=== PATIENT | female | born 1960 | race Caucasian/White ===

== ENCOUNTER → 2017-02-19 | Outpatient (CLI) | payer BC | LOC: MW.CHFP 15:02 | PROVIDERS: ATTEND Physician Assistant | DX: J02.9 Acute pharyngitis, unspecified (principal) | CPT/HCPCS: 87081; 87880 ==

== ENCOUNTER 2018-01-16 09:58 | Day surgery (SDC) | payer BC ==
[~2018-01-16 09:58] MED LIST: Acetaminophen/HYDROcodone 325-10 MG Tab PO PRN; Glycopyrrolate 0.2 MG/ML SDV ONE; Ketorolac 10 MG Tab PO PRN; Lactated Ringers 1,000 ML IV SCH; Lidocaine 2% 5 ML SDV ONE; Midazolam 1 MG/ML 2 ML SDV ONE; Neostigmine Methylsulfate 1 MG/ML 5 ML Syringe ONE; Ondansetron 4 MG/2 ML SDV ONE; Propofol 200 MG/20 ML SDV ONE; Rocuronium 10 MG/ML 10 ML Syringe ONE; ceFAZolin 2 GM in Premix Bag 1 BAG IV SCH; fentaNYL 100 MCG/2 ML SDV IVPUSH PRN; fentaNYL 250 MCG/5 ML SDV ONE
[2018-01-16] MEDS ORDERED: Dexamethasone 4 MG/ML 5 ML MDV ONE (10:13)
[2018-01-16] MEDS ORDERED: Midazolam 1 MG/ML 2 ML SDV ONE (10:13)
[2018-01-16] MEDS ORDERED: fentaNYL 100 MCG/2 ML SDV ONE (10:13)
[2018-01-16] MEDS ORDERED: Lidocaine 2% 5 ML SDV ONE (10:13)
[2018-01-16] MEDS ORDERED: Bupivacaine 0.5% 30 ML SDV ONE (10:14)
--- NOTE | 2018-01-16 10:37 | PCM.PREANE ---
Preanesthetic Assessment - Anesthesia/Transfusion/Family Hx Anesthesia History: Prior Anesthesia Without Reaction Family History of Anesthesia Reaction: No Transfusion History: Prior Transfusion Without Reaction - Review of Systems General: No Symptoms Pulmonary: No Symptoms Cardiovascular: No Symptoms Gastrointestinal: No Symptoms Neurological: No Symptoms Other: Reports: None - Physical Assessment NPO Status Date: 01/15/18 Height: 1.8 m Weight: 92.986 kg ASA Class: 2 Airway Class: Mallampati = 1 Dentition: Reports: Normal Dentition ROM/Head Extension: Full Lungs: Clear to Auscultation, Normal Respiratory Effort Cardiovascular: Regular Rate, Regular Rhythm - Allergies Allergies/Adverse Reactions: Allergies Allergy/AdvReac Type Severity Reaction Status Date / Time meperidine [From Demerol] Allergy Severe Tachycardia Verified 01/10/18 12:44 morphine Allergy Severe Tachycardia Verified 01/10/18 12:44 - Anesthesia Plan Pre-Op Medication Ordered: Anxiolytic (ISB for post op anangesia) - Acknowledgements Anesthesia Type Planned: General Anesthesia Pt an Appropriate Candidate for the Planned Anesthesia: Yes Alternatives and Risks of Anesthesia Discussed w Pt/Guardian: Yes Pt/Guardian Understands and Agrees with Anesthesia Plan: Yes PreAnesthesia Questionnaire Gastrointestinal History: Reports: Hepatitis, Other (See Below) Other Gastrointestinal History: occasional heartburn, hx of hepatitis C, went through treatment in 2007 Genitourinary History: Reports: None FINANCE EXECUTIVE History: Reports: Musculoskeletal History: Reports: Arthritis, Fibromyalgia Neurological History: Reports: Migraines Psychiatric History: Reports: Anxiety, Depression Endocrine/Metabolic History: Reports: None Hematologic History: Reports: Blood Transfusion(s), Other (See Below) Other Hematologic History: Hepatitis C, interferon treatments, transfusion after son was born Immunologic History: Reports: None Oncologic (Cancer) History: Reports: None Dermatologic History: Reports: None - Past Surgical History Head Surgeries/Procedures: Reports: None GI Surgical History: Reports: Appendectomy Female Surgical History: Reports: Section, Endometrial Ablation, Tubal Ligation, Other (See Below) Other Female Surgeries/Procedures: Laproscopy, Neurological Surgical History: Reports: Other (See Below) Other Neurological Surgeries/Procedures: coccyx removed - SUBSTANCE USE Smoking Status *Q: Never Smoker Recreational Drug Use History: No - HOME MEDS Home Medications: Home Meds . [No Known Home Meds] 01/10/18 [History] - CURRENT (IN HOUSE) MEDS Current Meds: Current Medications Hydrocodone Bitart/Acetaminophen ([place] 325-10 Mg) 1 - 2 tab PO Q4H PRN PRN Reason: Pain Fentanyl (Sublimaze) 50 mcg IVPUSH Q5M PRN PRN Reason: Pain (severe 7-10) Stop: 01/17/18 08:48 Cefazolin Sodium/Dextrose 2 gm (/ Premix) 50 mls @ 100 mls/hr IV ONCALL [facility] Lactated Ringer's (Ringers, Lactated) 1,000 mls @ 100 mls/hr IV ASDIRECTED [facility] Ketorolac Tromethamine (Toradol) 10 mg PO Q6H PRN PRN Reason: Pain Stop: 01/21/18 08:01 Discontinued Medications Bupivacaine HCl (Marcaine 0.5%) Confirm Administered Dose 30 ml .ROUTE .STK-MED ONE Stop: 01/16/18 10:15 Dexamethasone (Dexamethasone) Confirm Administered Dose 20 mg .ROUTE .STK-MED ONE Stop: 01/16/18 10:14 Fentanyl (Sublimaze) Confirm Administered Dose 250 mcg .ROUTE .STK-MED ONE Stop: 01/16/18 07:05 Fentanyl (Sublimaze) Confirm Administered Dose 100 mcg .ROUTE .STK-MED ONE Stop: 01/16/18 10:14 Glycopyrrolate (Robinul) Confirm Administered Dose 0.4 mg .ROUTE .STK-MED ONE Stop: 01/16/18 07:05 Lidocaine (Xylocaine-Mpf 2%) Confirm Administered Dose 5 ml .ROUTE .STK-MED ONE Stop: 01/16/18 07:05 Lidocaine (Xylocaine-Mpf 2%) Confirm Administered Dose 5 ml .ROUTE .STK-MED ONE Stop: 01/16/18 10:14 Midazolam HCl (Versed 1 Mg/Ml) Confirm Administered Dose 2 mg .ROUTE .STK-MED ONE Stop: 01/16/18 07:05 Midazolam HCl (Versed 1 Mg/Ml) Confirm Administered Dose 2 mg .ROUTE .STK-MED ONE Stop: 01/16/18 10:14 Neostigmine Methylsulfate (Neostigmine) Confirm Administered Dose 5 mg .ROUTE .STK-MED ONE Stop: 01/16/18 07:05 Ondansetron HCl (Zofran) Confirm Administered Dose 4 mg .ROUTE .STK-MED ONE Stop: 01/16/18 07:05 Propofol (Diprivan 20 Ml) Confirm Administered Dose 200 mg .ROUTE .STK-MED ONE Stop: 01/16/18 07:05 Rocuronium [place] (Zemuron) Confirm Administered Dose 100 mg .ROUTE .STK-MED ONE Stop: 01/16/18 07:05
--- NOTE | 2018-01-16 10:52 | PCM.SN ---
- Free Text/Narrative Note: procedure note: isb placed in pre op holding for post op pain management. consent obtained, site marked, time out performed, sedated with versed and fentanyl. skin localized with lido. twitch obtained, local injected in 5 ml increments to bupivicaine 0.5% 28 ml plus 8 mg dexamethasone. no comps
[2018-01-16] MEDS ORDERED: ceFAZolin 1 GM Vial ONE (11:30)
[2018-01-16] MEDS ORDERED: Sodium Chloride 0.9% 20 ML ONE (11:30)
[2018-01-16] MEDS ORDERED: ePHEDrine 50 MG/ML SDV ONE (11:31)
[2018-01-16] MEDS ORDERED: Phenylephrine 1% 10 MG/ML SDV ONE (11:33)
[2018-01-16] MEDS ORDERED: Glycopyrrolate 0.2 MG/ML SDV ONE (11:39)
--- NOTE | 2018-01-16 12:28 | PCM.OPNOTE ---
- General Post-Op/Procedure Note Date of Surgery/Procedure: 01/16/18 Operative Procedure(s): L shoulder scope with SAD, extensive debridement Post-Op Diagnosis: L shoulder impingement, biceps tendonopathy, degenerative anterior labral tear Primary Surgeon: Zelda Rockwell Associate Financial Advisor: Eva Liriano in mLs: 5 Condition: Good Free Text/Narrative:: #[id number]
--- NOTE | 2018-01-16 13:04 | OR ---
SURGEON: Zelda Rockwell MD DATE OF PROCEDURE: 01/16/2018 PREOPERATIVE DIAGNOSIS: Left shoulder impingement syndrome. POSTOPERATIVE DIAGNOSES: 1. Left shoulder impingement syndrome. 2. Left shoulder degenerative anterior labral tear. 3. Left shoulder biceps tendinopathy. PROCEDURES: Left shoulder arthroscopy with: 1. Subacromial decompression with release of coracoacromial ligament and acromioplasty. 2. Extensive debridement including debridement of degenerative anterior labral tear, biceps tenotomy, and extensive bursectomy. PSYCHOLOGY LECTURER: Eva Liriano PA-C. ANESTHESIA: General with interscalene block. ESTIMATED BLOOD LOSS: 5 mL. TOURNIQUET TIME: 0 minutes. COMPLICATIONS: None. DVT PROPHYLAXIS: PAS boots to bilateral lower extremities. IMPLANTS USED: None. BRIEF HISTORY: Cally is a 57-year-old female with history of continued left shoulder pain. She had failed conservative treatment. In addition to her left shoulder pain, she does have a diagnosis of fibromyalgia. Due to her lack of response to conservative treatment, I did recommend surgical intervention. The risks and goals of procedure were discussed with the patient and were documented preoperatively. She agreed to proceed. DESCRIPTION OF PROCEDURE: The patient was properly identified and brought to the operating room. She was transferred from the OR cart and placed on the operating table in supine position. General anesthesia was administered. An interscalene block had been administered preoperatively. After adequate anesthesia was obtained, she was placed into a beach-chair type position. Care was taken to pad all bony prominences. Her head was secured. The left upper extremity was then prepped in standard fashion using ChloraPrep solution. It was then sterilely draped. A time-out was performed to ensure correct site and procedure. Preoperative antibiotics were given. The surgical site had been marked preoperatively. A marking pen was used to identify bony landmarks. Approximately 30 mL of normal saline was introduced into the glenohumeral joint. A posterior portal was established. Blunt trocar and cannula were introduced into the glenohumeral joint. Camera, inflow, and outflow were assembled. No significant synovitis was noted in the rotator interval. An anterior portal was established. The subscapularis was visualized and probed and found to be intact. No loose bodies were present within the subscapular recess. The anterior labrum was then visualized. There was some degenerative fraying of the anterior labrum, which was resected with a shaver. A sublabral foramen was noted and this was not repaired. The biceps tendon was then visualized. Its attachment to the superior glenoid showed some peel back. The biceps did have extensive synovitis noted along the proximal insertion. As the tendon was pulled into the joint, extensive synovitis was noted distally along the tendon as well. With the degree of synovitis, I elected to proceed with a biceps tenotomy. This was performed without difficulty and the biceps tendon easily retracted into the biceps tendon sheath. Its attachment was smoothed. The glenoid and humeral head were inspected. No degenerative changes were noted. The posterior labrum appeared intact. I extended into the axillary pouch and mild synovitis was noted. No loose bodies were identified. The arm was then brought into an abducted and externally rotated position. The bare area was noted posteriorly. As I progressed anteriorly, the cuff attachment appeared intact, and there was no sign of partial or full-thickness tearing. The arm was then brought back into a neutral position. Instruments were removed from the glenohumeral joint. Blunt trocar and cannula were then introduced into the subacromial space. Camera, inflow, and outflow were assembled. A lateral portal was established. A shaver was inserted. She had a large degree of hemorrhagic bursa. This was resected with the shaver and electrocautery. The undersurface of the acromion was cleared. The coracoacromial ligament was released anteriorly. She appeared to have a large spur off the anterior acromion. A 5.0 mm stanford was used to resect this and perform an acromioplasty. This provided good decompression of the subacromial space. The remainder of the rotator cuff was inspected. There did not appear to be any evidence of tearing or softening of the cuff tissue. Instruments were then removed from the shoulder. The portal sites were closed with 3-0 nylon. Xeroform gauze was placed over the wound and a bulky dressing was applied. She was placed into a sling. She was awakened from her anesthetic and transferred back to the operating room cart. She was brought to recovery room in stable condition. All needle and sponge counts were correct. CONY / PAUL /[id number]
--- NOTE | 2018-01-16 13:48 | PCM48HPAN ---
Post Anesthesia Note - EVALUATION WITHIN 48HRS OF ANESTHETIC Vital Signs in Normal Range: Yes Patient Participated in Evaluation: Yes Respiratory Function Stable: Yes Airway Patent: Yes Cardiovascular Function Stable: Yes Hydration Status Stable: Yes Pain Control Satisfactory: Yes Nausea and Vomiting Control Satisfactory: Yes Mental Status Recovered: Yes Resp Rate: 13
--- NOTE | 2018-01-16 13:48 | PCM.POSTAN ---
POST ANESTHESIA ASSESSMENT - MENTAL STATUS Mental Status: Alert, Oriented - RESPIRATORY Respiratory Status: Respiratory Rate WNL, Airway Patent, O2 Saturation Stable - CARDIOVASCULAR CV Status: Pulse Rate WNL, Blood Pressure Stable - GASTROINTESTINAL GI Status: No Symptoms - POST OP HYDRATION Hydration Status: Adequate & Stable
[2018-01-16] MEDS ORDERED: Scopolamine 1.5 MG Transdermal Patch TRDERM PRN (14:53)
[2018-01-16] MEDS ORDERED: Meclizine 25 MG Tab PO ONE (14:54)
== END 2018-01-16 15:50 | disposition home or self-care (01) ==
LOC: MW.SDS 09:58
PROVIDERS: ATTEND Orthopaedic Surgery
DX: M75.42 Impingement syndrome of left shoulder (principal); M75.22 Bicipital tendinitis, left shoulder; S43.432A Superior glenoid labrum lesion of left shoulder, initial encounter; Z88.8 Allergy status to other drugs, medicaments and biological substances; Z90.49 Acquired absence of other specified parts of digestive tract; X58.XXXA Exposure to other specified factors, initial encounter
CPT/HCPCS: 29823; 29826; A9270; J0690; J1100; J2250; J2370; J2405; J3010; J7120; 01630; 88304; J2704

== ENCOUNTER 2021-07-02 18:11 | Emergency (ER) | payer BC ==
[2021-07-02] MEDS ORDERED: Sodium Chloride 0.9% 1,000 ML IV ONE (19:06)
[2021-07-02] MEDS ORDERED: Ketorolac 30 MG/ML SDV IVPUSH ONE (19:30)
[2021-07-02] MEDS ORDERED: Ondansetron 4 MG/2 ML SDV IVPUSH ONE (19:30)
[2021-07-02 20:04] LABS: BLOOD UREA NITROGEN,BUN 11 mg/dL (7.0-18.0); CARBON DIOXIDE,CO2 27.5 mmol/L (21.0-32.0); CHLORIDE,CL 96 mmol/L (98-107); GLUCOSE RANDOM 112 mg/dL (74-106); POTASSIUM,K 3.7 mmol/L (3.5-5.1); SODIUM,NA 133 mmol/L (136-145)
[2021-07-02] MEDS ORDERED: Acetaminophen 500 MG Tab PO ONE (20:22)
--- NOTE | 2021-07-02 21:22 | EDM.PDOC ---
ED HPI GENERAL MEDICAL PROBLEM - General Chief Complaint: General Stated Complaint: COVID POSITIVE Time Seen by Provider: 07/02/21 18:55 Source of Information: Reports: Patient History Limitations: Reports: No Limitations - History of Present Illness INITIAL COMMENTS - FREE TEXT/NARRATIVE: HISTORY AND PHYSICAL: History of present illness: Patient is a 61-year-old female with known COVID-19 diagnosis since yesterday who presents emergency room today feeling as if she cannot control her fevers with medications at home. Patient states that she took 1 dose of Advil at 4 AM and took a dose of Mucinex at 10 this morning and states that she continues to have a fever. Patient denies taking any Tylenol and has not taken Advil since. Patient states that she was diagnosed with COVID-19 yesterday in the walk-in clinic and is set up to receive Regeneron starting Sunday at the cancer center. Patient states other than feeling her fever, she has otherwise been well and denies any worsening chest pain or shortness of breath. Patient states she has had a cough, body aches, and mild headache. Notes episode vomiting earlier today. Patient denies chest pain, shortness of breath. Denies neck stiff ness, change in vision, syncope, or near syncope. Denies abdominal pain, diarrhea, constipation, or dysuria. Has not noted any blood in urine or stool. Patient has been eating and drinking appropriately. Review of systems: As per history of present illness and below otherwise all systems reviewed and negative. Past medical history: As per history of present illness and as reviewed below otherwise noncontributory. Surgical history: As per history of present illness and as reviewed below otherwise noncontributory. Social history: See social history for further information Family history: As per history of present illness and as reviewed below otherwise noncontributory. Physical exam: General: Patient is alert, oriented, and in no acute distress. Patient sitting comfortably on exam table. Patient is febrile 101.8 otherwise vitally stable. HEENT: Atraumatic, normocephalic, pupils equal and reactive bilaterally, negative for conjunctival pallor or scleral icterus, mucous membranes moist, TMs normal bilaterally, throat clear, neck supple, nontender, trachea midline. No drooling or trismus noted. No meningeal signs. No hot potato voice noted. Lungs: Clear to auscultation, breath sounds equal bilaterally, chest nontender. Heart: S1S2, regular rate and rhythm without overt murmur Abdomen: Soft, nondistended, nontender. Negative for masses or hepatosplen omegaly. Negative for costovertebral tenderness. Pelvis: Stable nontender. Genitourinary: Deferred. Rectal: Deferred. Skin: Intact, warm, dry. No lesions or rashes noted. Extremities: Atraumatic, negative for cords or calf pain. Neurovascular unremarkable. Neuro: Awake, alert, oriented. Cranial nerves II through XII unremarkable. Cerebellum unremarkable. Motor and sensory unremarkable throughout. Exam nonfocal. Notes: Patient is a 61-year-old female who presents emergency room today secondary to known COVID-19 diagnosis yesterday with concern of not being able to control her fevers today. On arrival to the ED, patient is febrile 101.8, otherwise vitally stable on exam and well-appearing. Will obtain basic lab work and provide 1 L normal saline bolus, Zofran, and Tylenol and reassess patient. CBC unremarkable. CMP shows mild hyponatremia of 133 and hypochloremia of 96. Glucose mildly elevated at 112. AST and ALT are elevated at 120 and 117 respectively with a normal bilirubin and alk phos. Upon reevaluation of patient, she remains vitally stable and her fever has now decreased to 99.8 orally (HR 90, BP 140/90s, O2 on RA 95%, RR 16. Strict return precautions thoroughly discussed with patient. Discussed importance for follow- up with a primary care provider following COVID-19 instruction and for reevaluation of her liver function testing with her pcp. Patient states that she is scheduled to receive Regeneron on Sunday. Voices understanding and is agreeable to plan of care. Denies any further questions or concerns at this time. Diagnostics: CBC, CMP Therapeutics: Normal saline, Toradol, Tylenol, Zofran Prescription: None Impression: COVID-19 viral infection Transaminitis Plan: 1. Your vital signs and oxygen saturation are well enough that you were able to monitor your symptoms at home. Continue to monitor for trouble breathing, new confusion or inability to arouse, bluish lips or face or any of the other symptoms we discussed -if this occurs please return to the emergency room.Continue to monitor your health at home for worsening symptoms so that you can be taken care of and treated quickly if needed. 2. Please self quarantine until 10 days have passed since your symptoms began AND you are fever free (<100.4 degrees fahrenheit) for 24 hours without the use of fever-reducing medications AND symptoms are improving. You should restrict activities outside of your home, except for getting medical care. Do not go to work, school, or public areas. Avoid using public transportation, ride-sharing, or taxis. 3. You may alternate Tylenol and ibuprofen as needed for pain and fever management. 4. The [facility] department will be calling you and following up with you. The [place] COVID 19 Hotline phone number , They are open Sunday - Sunday 7am - 7pm. Follow up with your primary care provider for re-evaluation and re-testing after quarantine and discuss when you should be seen. 5. For more specific guidelines regarding isolation/quarantine please visit this website. https://www.health.[place].gov/sites/www/files/documents/Files/EVELIO/coronavirus/Factsh eet_for_People_With_COVID-19.pdf Definitive disposition and diagnosis as appropriate pending reevaluation and review of above. generalized Pain Score (Numeric/FACES): 10 - Related Data Allergies Allergy/AdvReac Type Severity Reaction Status Date / Time meperidine [From Demerol] Allergy Severe Tachycardia Verified 07/02/21 18:57 morphine Allergy Severe Tachycardia Verified 07/02/21 18:57 Home Meds: Home Meds Metoprolol Succinate 100 mg PO DAILY 07/02/21 [History] amLODIPine [Norvasc] 5 mg PO DAILY 07/02/21 [History] lisinopriL [Lisinopril] 40 mg PO DAILY 07/02/21 [History] Past Medical History Cardiovascular History: Reports: Hypertension Gastrointestinal History: Reports: Hepatitis, Other (See Below) Other Gastrointestinal History: occasional heartburn, hx of hepatitis C, went through treatment in 2007 Genitourinary History: Reports: None [employer] History: Reports: Musculoskeletal History: Reports: Arthritis, Fibromyalgia Neurological History: Reports: Migraines Psychiatric History: Reports: Anxiety, Depression Endocrine/Metabolic History: Reports: None Hematologic History: Reports: Blood Transfusion(s), Other (See Below) Other Hematologic History: Hepatitis C, interferon treatments, transfusion after son was born Immunologic History: Reports: None Oncologic (Cancer) History: Reports: None Dermatologic History: Reports: None - Infectious Disease History Infectious Disease History: Reports: Hepatitis C, Novel Coronavirus - Past Surgical History Head Surgeries/Procedures: Reports: None GI Surgical History: Reports: Appendectomy Female Surgical History: Reports: Section, Endometrial Ablation, Tubal Ligation, Other (See Below) Other Female Surgeries/Procedures: Laproscopy, Neurological Surgical History: Reports: Other (See Below) Other Neurological Surgeries/Procedures: coccyx removed Social & Family History - Family History Family Medical History: No Pertinent Family History - Tobacco Use Tobacco Use Status *Q: Never Tobacco User - Caffeine Use Caffeine Use: Reports: None - Recreational Drug Use Recreational Drug Use: No ED ROS GENERAL - Review of Systems Review Of Systems: Comprehensive ROS is negative, except as noted in HPI. ED EXAM, GENERAL - Physical Exam Exam: See Below (see dictation) Course - Vital Signs Last Recorded V/S: Last Vital Signs Temp 101.8 F H 07/02/21 19:36 Pulse 107 H 07/02/21 19:36 Resp 22 H 07/02/21 19:36 BP 149/90 H 07/02/21 19:36 Pulse Ox 94 L 07/02/21 19:36 - Orders/Labs/Meds Labs: Laboratory Tests 07/02/21 07/02/21 Range/Units 19:25 19:25 WBC 5.55 (4.0-11.0) K/uL RBC 4.75 (4.30-5.90) M/uL Hgb 14.5 (12.0-16.0) g/dL Hct 42.2 (36.0-46.0) % MCV 88.8 (80.0-98.0) fL MCH 30.5 (27.0-32.0) pg MCHC 34.4 (31.0-37.0) g/dL RDW Std Deviation 44.3 (28.0-62.0) fl RDW Coeff of Camacho 14 (11.0-15.0) % Plt Count 184 (150-400) K/uL MPV 10.10 (7.40-12.00) fL Neut % (Auto) 69.7 (48.0-80.0) % Lymph % (Auto) 19.6 (16.0-40.0) % [place] % (Auto) 10.5 (0.0-15.0) % Eos % (Auto) 0.0 (0.0-7.0) % Baso % (Auto) 0.2 (0.0-1.5) % Neut # (Auto) 3.9 (1.4-5.7) K/uL Lymph # (Auto) 1.1 (0.6-2.4) K/uL [place] # (Auto) 0.6 (0.0-0.8) K/uL Eos # (Auto) 0.0 (0.0-0.7) K/uL Baso # (Auto) 0.0 (0.0-0.1) K/uL Nucleated RBC % 0.0 /100WBC Nucleated RBCs # 0 K/uL Sodium 133 L (136-145) mmol/L Potassium 3.7 (3.5-5.1) mmol/L Chloride 96 L (98-107) mmol/L Carbon Dioxide 27.5 (21.0-32.0) mmol/L BUN 11 (7.0-18.0) mg/dL Creatinine 0.9 (0.6-1.0) mg/dL Est Cr Clr Drug Dosing 72.44 mL/min Estimated GFR (MDRD) > 60.0 ml/min Glucose 112 H (74-106) mg/dL Calcium 9.0 (8.5-10.1) mg/dL Total Bilirubin 0.8 (0.2-1.0) mg/dL AST 120 H (15-37) IU/L ALT 117 H (14-63) IU/L Alkaline Phosphatase 95 (46-116) U/L Total Protein 8.1 (6.4-8.2) g/dL Albumin 4.2 (3.4-5.0) g/dL Globulin 3.9 (2.6-4.0) g/dL Albumin/Globulin Ratio 1.1 (0.9-1.6) Meds: Medications Discontinued Medications Generic Name Dose Route Start Last Admin Trade Name Freq PRN Reason Stop Dose Admin Acetaminophen 1,000 mg 07/02/21 20:22 07/02/21 21:20 Acetaminophen 500 Mg Tab PO 07/02/21 20:23 1,000 mg ONETIME ONE Administration Sodium Chloride 1,000 mls @ 999 mls/hr 07/02/21 19:06 07/02/21 19:38 Normal Saline IV 07/02/21 20:06 999 mls/hr BOLUS ONE Administration Ketorolac Tromethamine 30 mg 07/02/21 19:30 07/02/21 20:01 Ketorolac 30 Mg/Ml Sdv IVPUSH 07/02/21 19:31 30 mg ONETIME ONE Administration Ondansetron HCl 4 mg 07/02/21 19:30 07/02/21 20:01 Ondansetron 4 Mg/2 Ml Sdv IVPUSH 07/02/21 19:31 4 mg ONETIME ONE Administration Departure - Departure Time of Disposition: : Disposition: Home, Self-Care 01 Clinical Impression: COVID-19 virus infection, Transaminitis - Discharge Information Instructions: COVID-19 Referrals: Marlene Mckay PA [Primary Care Provider] - Forms: ED Department Discharge Additional Instructions: The following information is given to patients seen in the emergency department who are being discharged to home. This information is to outline your options for follow-up care. We provide all patients seen in our emergency department with a follow-up referral. The need for follow-up, as well as the timing and circumstances, are variable depending upon the specifics of your emergency department visit. If you don't have a primary care physician on staff, we will provide you with a referral. We always advise you to contact your personal physician following an emergency department visit to inform them of the circumstance of the visit and for follow-up with them and/or the need for any referrals to a consulting specialist. The emergency department will also refer you to a specialist when appropriate. This referral assures that you have the opportunity for follow-up care with a specialist. All of these measure are taken in an effort to provide you with optimal care, which includes your follow-up. Under all circumstances we always encourage you to contact your private physician who remains a resource for coordinating your care. When calling for follow-up care, please make the office aware that this follow-up is from your recent emergency room visit. If for any reason you are refused follow-up, please contact the [facility] Emergency Department at and asked to speak to the emergency department charge nurse. [facility] [address] [place] [address] [facility] [address] [place] [address] 1. Your vital signs and oxygen saturation are well enough that you were able to monitor your symptoms at home. Continue to monitor for trouble breathing, new confusion or inability to arouse, bluish lips or face or any of the other symptoms we discussed -if this occurs please return to the emergency room.Continue to monitor your health at home for worsening symptoms so that you can be taken care of and treated quickly if needed. 2. Please self quarantine until 10 days have passed since your symptoms began AND you are fever free (<100.4 degrees fahrenheit) for 24 hours without the use of fever-reducing medications AND symptoms are improving. You should restrict activities outside of your home, except for getting medical care. Do not go to work, school, or public areas. Avoid using public transportation, ride-sharing, or taxis. 3. You may alternate Tylenol and ibuprofen as needed for pain and fever management. 4. The [facility] department will be calling you and following up with you. The [place] COVID 19 Hotline phone number , They are open Sunday - Sunday 7am - 7pm. Follow up with your primary care provider for re-evaluation and re-testing after quarantine and discuss when you should be seen. 5. For more specific guidelines regarding isolation/quarantine please visit this website. https://www.health.[place].gov/sites/www/files/documents/Files/EVELIO/coronavirus/Factsh eet_for_People_With_COVID-19.pdf Sepsis Event Note (ED) - Evaluation Sepsis Screening Result: Possible Sepsis Risk
== END 2021-07-02 21:31 | disposition home or self-care (01) ==
LOC: MW.ED 18:11
DX: U07.1 COVID-19 (principal); R74.01 Elevation of levels of liver transaminase levels; I10 Essential (primary) hypertension; Z88.5 Allergy status to narcotic agent; Z79.899 Other long term (current) drug therapy
CPT/HCPCS: 36415; 80053; 85025; 96374; 96375; 99284; A9270; J1885; J2405; J7030; 99283

== ENCOUNTER 2021-07-05 18:57 | Emergency (ER) | payer BC ==
[2021-07-05] MEDS ORDERED: Sodium Chloride 0.9% 10 ML Syringe FLUSH PRN (19:43)
[2021-07-05] MEDS ORDERED: Sodium Chloride 0.9% 2.5 ML Syringe FLUSH PRN (19:43)
[2021-07-05] MEDS ORDERED: Sodium Chloride 0.9% 1,000 ML IV ONE (19:43)
[2021-07-05] MEDS ORDERED: cefTRIAXone 1 GM in Sodium Chloride 0.9% 100 ML IV ONE (19:43)
--- NOTE | 2021-07-05 20:04 | EDM.PDOC ---
ED HPI GENERAL MEDICAL PROBLEM - General Chief Complaint: Respiratory Problem Stated Complaint: VOMITTING, COVID POSITIVE Time Seen by Provider: 07/05/21 19:43 - History of Present Illness INITIAL COMMENTS - FREE TEXT/NARRATIVE: History of present illness: [] This 61-year-old is treated only for hypertension says that she has been symptomatic with cough weakness and fever since 28 June 2021 and has been diagnosed with COVID-19. Today when she vomited quite a bit she found that 1 time she choked and got some of the vomitus in her lungs. She coughed up what looked like vomit. The patient is more short of breath and weaker since. The patient has a sick at home with her. She is concerned about his health as well. The patient is unvaccinated. This patient was seen and evaluated during the 2019 SARS-CoV-2 novel coronavirus pandemic period. Community viral transmission is ongoing at time of this encounter and the emergency department is operating under pandemic response procedures. Review of systems: As per history of present illness and below otherwise all systems reviewed and negative. Past medical history: As per history of present illness and as reviewed below otherwise noncontributory. Surgical history: As per history of present illness and as reviewed below otherwise noncontributory. Social history: No reported history of drug or alcohol abuse. Family history: As per history of present illness and as reviewed below otherwise noncontributory. Physical exam: Constitutional - well developed, well-nourished and in no acute distress HEENT - normocephalic, no evidence of trauma - external nose and mouth normal - no mass in neck and no JVD - mucosae moist EYES - full EOM, PERRL, no icterus - no evidence of inflammation, injection, or drainage Respiratory - no respiratory distress, equal bilateral expansion, lungs markedly diminished to auscultation. Oxygen saturation 93 to 95% on room air which is in the normal range. She claims it was 88% at home on her home oxygen monitor. Cardiovascular - Regular Rhythm with S1 and S2 appreciated and no murmur, gallop or rub. GI - abdomen soft without distension or organomegaly - normal bowel sounds - no guard or rebound Musculoskeletal no gross deformity of long bones or joints - no tenderness, swelling or edema Neurologic - Alert and oriented times four - CN II-XII grossly intact - motor sensory and coordination symmetrically normal Psychiatric - appropriate mood and affect with normal thought content Hematologic - No petechiae or purpura - mucosa appropriate color and sclera not pale - normal nail bed color and refill Integument - no rash or evidence of trauma - normal turgor Diagnostics: [] Therapeutics: [] Impression: [] Plan: [] Definitive disposition and diagnosis as appropriate pending reevaluation and review of above. - Related Data Allergies Allergy/AdvReac Type Severity Reaction Status Date / Time meperidine [From Demerol] Allergy Severe Tachycardia Verified 07/02/21 18:57 morphine Allergy Severe Tachycardia Verified 07/02/21 18:57 Home Meds: Home Meds Metoprolol Succinate 100 mg PO DAILY 07/02/21 [History] amLODIPine [Norvasc] 5 mg PO DAILY 07/02/21 [History] lisinopriL [Lisinopril] 40 mg PO DAILY 07/02/21 [History] Ondansetron [Zofran ODT] 4 mg PO Q6H PRN #10 tab.dis 07/05/21 [Rx] Past Medical History Cardiovascular History: Reports: Hypertension Gastrointestinal History: Reports: Hepatitis, Other (See Below) Other Gastrointestinal History: occasional heartburn, hx of hepatitis C, went through treatment in 2007 Genitourinary History: Reports: None ESTABLISHMENT GUIDE History: Reports: Musculoskeletal History: Reports: Arthritis, Fibromyalgia Neurological History: Reports: Migraines Psychiatric History: Reports: Anxiety, Depression Endocrine/Metabolic History: Reports: None Hematologic History: Reports: Blood Transfusion(s), Other (See Below) Other Hematologic History: Hepatitis C, interferon treatments, transfusion after son was born Immunologic History: Reports: None Oncologic (Cancer) History: Reports: None Dermatologic History: Reports: None - Infectious Disease History Infectious Disease History: Reports: Hepatitis C, Novel Coronavirus - Past Surgical History Head Surgeries/Procedures: Reports: None GI Surgical History: Reports: Appendectomy Female Surgical History: Reports: Section, Endometrial Ablation, Tubal Ligation, Other (See Below) Other Female Surgeries/Procedures: Laproscopy, Neurological Surgical History: Reports: Other (See Below) Other Neurological Surgeries/Procedures: coccyx removed Social & Family History - Family History Family Medical History: No Pertinent Family History - Caffeine Use Caffeine Use: Reports: None ED ROS GENERAL - Review of Systems Review Of Systems: Comprehensive ROS is negative, except as noted in HPI. ED EXAM, GENERAL - Physical Exam Exam: See Below Free Text/Narrative:: My physical exam is in the HPI #1 Interpretation EKG Interpretation Comments: EKG date 07/05/2021 time 8:32 PM rhythm sinus rhythm rate 98 [place] interval 169 QT duration 428 [place] XIX QRS late transition R wave in the precordium comparison EKG 01/06/2019 no change that cannot be explained by lead placement impression no acute injury Course - Vital Signs Last Recorded V/S: Last Vital Signs Temp 38.9 C H 07/05/21 19:35 Pulse 101 H 07/05/21 19:35 Resp 16 07/05/21 19:35 BP 141/90 H 07/05/21 19:35 Pulse Ox 95 07/05/21 19:35 - Orders/Labs/Meds Orders: Active Orders 24 hr Category Date Time Status Blood Pressure Mgt: Sepsis [RC] Q15MX2 Care 07/05/21 19:44 Active CULTURE BLOOD [BC] Stat Lab 07/05/21 20:15 Received CULTURE BLOOD [BC] Stat Lab 07/05/21 20:27 Received Sodium Chloride 0.9% [Saline Flush] Med 07/05/21 19:43 Active 10 ml FLUSH ASDIRECTED PRN Sodium Chloride 0.9% [Saline Flush] Med 07/05/21 19:43 Active 2.5 ml FLUSH ASDIRECTED PRN Blood Culture x2 Reflex Set [OM.PC] Stat Oth 07/05/21 19:43 Ordered Saline Lock Insert [OM.PC] Stat Oth 07/05/21 19:43 Ordered Severe Sepsis Onset Time [OM.PC] Stat Oth 07/05/21 19:43 Ordered Medication Orders Sodium Chloride (Sodium Chloride 0.9% 10 Ml Syringe) 10 ml FLUSH ASDIRECTED PRN PRN Reason: Keep Vein Open Sodium Chloride (Sodium Chloride 0.9% 2.5 Ml Syringe) 2.5 ml FLUSH ASDIRECTED PRN PRN Reason: Keep Vein Open Labs: Laboratory Tests 07/05/21 07/05/21 07/05/21 Range/Units 20:15 20:15 20:27 WBC 4.65 (4.0-11.0) K/uL RBC 4.57 (4.30-5.90) M/uL Hgb 13.5 (12.0-16.0) g/dL Hct 39.8 (36.0-46.0) % MCV 87.1 (80.0-98.0) fL MCH 29.5 (27.0-32.0) pg MCHC 33.9 (31.0-37.0) g/dL RDW Std Deviation 43.6 (28.0-62.0) fl RDW Coeff of [place]acho 14 (11.0-15.0) % Plt Count 154 (150-400) K/uL MPV 10.30 (7.40-12.00) fL Neut % (Auto) 63.2 (48.0-80.0) % Lymph % (Auto) 30.1 (16.0-40.0) % [place] % (Auto) 6.5 (0.0-15.0) % Eos % (Auto) 0.0 (0.0-7.0) % Baso % (Auto) 0.2 (0.0-1.5) % Neut # (Auto) 2.9 (1.4-5.7) K/uL Lymph # (Auto) 1.4 (0.6-2.4) K/uL [place] # (Auto) 0.3 (0.0-0.8) K/uL Eos # (Auto) 0.0 (0.0-0.7) K/uL Baso # (Auto) 0.0 (0.0-0.1) K/uL Nucleated RBC % 0.0 /100WBC Nucleated RBCs # 0 K/uL Sodium 136 (136-145) mmol/L Potassium 3.1 L (3.5-5.1) mmol/L Chloride 99 (98-107) mmol/L Carbon Dioxide 26.2 (21.0-32.0) mmol/L BUN 12 (7.0-18.0) mg/dL Creatinine 0.8 (0.6-1.0) mg/dL Est Cr Clr Drug Dosing 81.49 mL/min Estimated GFR (MDRD) > 60.0 ml/min Glucose 117 H (74-106) mg/dL Lactic Acid 1.2 (0.4-2.0) mmol/L Calcium 8.6 (8.5-10.1) mg/dL Total Bilirubin 0.6 (0.2-1.0) mg/dL AST 68 H (15-37) IU/L ALT 73 H (14-63) IU/L Alkaline Phosphatase 75 (46-116) U/L Troponin I < 0.050 (0.000-0.056) ng/mL Total Protein 7.5 (6.4-8.2) g/dL Albumin 3.6 (3.4-5.0) g/dL Globulin 3.9 (2.6-4.0) g/dL Albumin/Globulin Ratio 0.9 (0.9-1.6) Lipase 95 (73-393) U/L Meds: Medications Generic Name Dose Route Start Last Admin Trade Name Freq PRN Reason Stop Dose Admin Sodium Chloride 10 ml 07/05/21 19:43 Sodium Chloride 0.9% 10 Ml Syringe FLUSH ASDIRECTED PRN Keep Vein Open Sodium Chloride 2.5 ml 07/05/21 19:43 Sodium Chloride 0.9% 2.5 Ml Syringe FLUSH ASDIRECTED PRN Keep Vein Open Discontinued Medications Generic Name Dose Route Start Last Admin Trade Name Freq PRN Reason Stop Dose Admin Ceftriaxone Sodium Confirm 07/05/21 20:24 07/05/21 21:05 Ceftriaxone 1 Gm Vial Administered 07/05/21 20:25 Not Given Dose 1 gm .ROUTE .STK-MED ONE Ceftriaxone Sodium 1 gm/ 100 mls @ 200 mls/hr 07/05/21 19:43 07/05/21 21:03 Sodium Chloride IV 07/05/21 20:12 200 mls/hr STAT ONE Administration Sodium Chloride 1,000 mls @ 1,000 mls/hr 07/05/21 19:43 07/05/21 21:03 Normal Saline IV 07/05/21 20:42 1,000 mls/hr BOLUS ONE Administration Protocol Potassium Chloride 40 meq 07/05/21 21:38 Potassium Chloride 20 Meq Tab.Er PO 07/05/21 21:39 ONETIME ONE Departure - Departure Time of Disposition: 22:52 Disposition: Home, Self-Care 01 Clinical Impression: Hypokalemia, Pneumonia due to COVID-19 virus - Discharge Information Instructions: COVID-19 Vaccine Information, COVID-19: Quarantine vs. Isolation - [facility] (10/28/2020), 10 Things You Can Do to Manage Your COVID-19 Symptoms at Home - [facility] (05/12/2020), COVID-19: What to Do if You Are Sick - [facility] (11/11/2020), Hypokalemia Referrals: Marlene Mckay PA [Primary Care Provider] - Forms: ED Department Discharge Additional Instructions: [facility] - Primary Care [address] [place] [address] [facility] [address] [place] [id number] The following information is given to patients seen in the emergency department who are being discharged to home. This information is to outline your options for follow-up care. We provide all patients seen in our emergency department with a follow-up referral. The need for follow-up, as well as the timing and circumstances, are variable depending upon the specifics of your emergency department visit. If you don't have a primary care physician on staff, we will provide you with a referral. We always advise you to contact your personal physician following an emergency department visit to inform them of the circumstance of the visit and for follow-up with them and/or the need for any referrals to a consulting specialist. The emergency department will also refer you to a specialist when appropriate. This referral assures that you have the opportunity for follow-up care with a specialist. All of these measure are taken in an effort to provide you with optimal care, which includes your follow-up. Under all circumstances we always encourage you to contact your private physician who remains a resource for coordinating your care. When calling for follow-up care, please make the office aware that this follow-up is from your recent emergency room visit. If for any reason you are refused follow-up, please contact the [facility] Emergency Department at and asked to speak to the emergency department charge nurse. Sepsis Event Note (ED) - Evaluation Sepsis Screening Result: Possible Severe Sepsis Risk - Focused Exam Vital Signs: Vital Signs Temp Pulse Resp BP Pulse Ox 07/05/21 19:35 38.9 C H 101 H 16 141/90 H 95 - My Orders Last 24 Hours: My Active Orders 07/05/21 19:43 Sodium Chloride 0.9% [Saline Flush] 10 ml FLUSH ASDIRECTED PRN Sodium Chloride 0.9% [Saline Flush] 2.5 ml FLUSH ASDIRECTED PRN Blood Culture x2 Reflex Set [OM.PC] Stat Saline Lock Insert [OM.PC] Stat Severe Sepsis Onset Time [OM.PC] Stat 07/05/21 19:44 Blood Pressure Mgt: Sepsis [RC] Q15MX2 07/05/21 20:15 CULTURE BLOOD [BC] Stat 07/05/21 20:27 CULTURE BLOOD [BC] Stat - Assessment/Plan Last 24 Hours: My Active Orders 07/05/21 19:43 Sodium Chloride 0.9% [Saline Flush] 10 ml FLUSH ASDIRECTED PRN Sodium Chloride 0.9% [Saline Flush] 2.5 ml FLUSH ASDIRECTED PRN Blood Culture x2 Reflex Set [OM.PC] Stat Saline Lock Insert [OM.PC] Stat Severe Sepsis Onset Time [OM.PC] Stat 07/05/21 19:44 Blood Pressure Mgt: Sepsis [RC] Q15MX2 07/05/21 20:15 CULTURE BLOOD [BC] Stat 07/05/21 20:27 CULTURE BLOOD [BC] Stat
[2021-07-05] MEDS ORDERED: cefTRIAXone 1 GM Vial ONE (20:24)
[2021-07-05 21:01] LABS: BLOOD UREA NITROGEN,BUN 12 mg/dL (7.0-18.0); CARBON DIOXIDE,CO2 26.2 mmol/L (21.0-32.0); CHLORIDE,CL 99 mmol/L (98-107); GLUCOSE RANDOM 117 mg/dL (74-106); LIPASE 95 U/L (73-393); POTASSIUM,K 3.1 mmol/L (3.5-5.1); SODIUM,NA 136 mmol/L (136-145)
[2021-07-05] MEDS ORDERED: Potassium Chloride 20 MEQ Tab.ER PO ONE (21:38)
--- NOTE | 2021-07-05 22:07 | CR ---
INDICATION: Sepsis, COVID positive TECHNIQUE: Portable upright AP view of the chest COMPARISON: None FINDINGS: There are mild bilateral pulmonary opacities with peripheral basal predominance slightly worse on the left. There is no sizable pleural effusion or pneumothorax. The cardiomediastinal silhouette is normal. The visualized osseous structures are unremarkable. IMPRESSION: Mild bilateral pulmonary opacities with peripheral basal predominance slightly, compatible with changes of COVID-19 pneumonia. Dictated by Claudine Skelton MD @ 07/05/2021 10:06:[address] Claudine Skelton @ Jul 05 2021 10:06PM
[2021-07-05] MEDS ORDERED: Ondansetron 4 MG Tab.DIS PO ONE ×2 (22:53→22:55)
== END 2021-07-05 23:20 | disposition home or self-care (01) ==
LOC: MW.ED 18:57
DX: U07.1 COVID-19 (principal); J12.82 Pneumonia due to coronavirus disease 2019; E87.6 Hypokalemia; I10 Essential (primary) hypertension; M19.90 Unspecified osteoarthritis, unspecified site; Z88.5 Allergy status to narcotic agent; Z79.899 Other long term (current) drug therapy
CPT/HCPCS: 36415; 71045; 80053; 83605; 83690; 84484; 85025; 87040; 93005; 96365; 99285; A9270; J0696; J7030

== ENCOUNTER 2024-09-11 10:34 | Day surgery (SDC) | payer MEDICARE, OTHER ==
[~2024-09-11 10:34] MED LIST changes: -Acetaminophen/HYDROcodone 325-10 MG Tab PO PRN; -Glycopyrrolate 0.2 MG/ML SDV ONE; -Ketorolac 10 MG Tab PO PRN; -Lactated Ringers 1,000 ML IV SCH; -Lidocaine 2% 5 ML SDV ONE; -Midazolam 1 MG/ML 2 ML SDV ONE; -Neostigmine Methylsulfate 1 MG/ML 5 ML Syringe ONE; -Ondansetron 4 MG/2 ML SDV ONE; -Propofol 200 MG/20 ML SDV ONE; -Rocuronium 10 MG/ML 10 ML Syringe ONE; +Sodium Chloride 0.9% 10 ML Syringe FLUSH PRN; +Sodium Chloride 0.9% 2.5 ML Syringe FLUSH PRN; +Sodium Chloride 0.9% 20 ML SDV IV PRN; -ceFAZolin 2 GM in Premix Bag 1 BAG IV SCH; -fentaNYL 100 MCG/2 ML SDV IVPUSH PRN; -fentaNYL 250 MCG/5 ML SDV ONE
[2024-09-11] MEDS: Lactated Ringers 1,000 ML IV SCH (12:19)
[2024-09-11] MEDS ORDERED: propofoL 50 ML ONE (12:35)
[2024-09-11] MEDS ORDERED: Ketamine HCL/NACL, ISO-OSM 50 MG/5 ML Syringe ONE (12:57)
[2024-09-11] MEDS ORDERED: fentaNYL 100 MCG/2 ML SDV ONE (13:16)
== END 2024-09-11 15:10 | disposition home or self-care (01) ==
LOC: MW.SDS 10:34
PROVIDERS: ATTEND Surgery
DX: D12.5 Benign neoplasm of sigmoid colon (principal); K62.1 Rectal polyp; K29.50 Unspecified chronic gastritis without bleeding; K21.9 Gastro-esophageal reflux disease without esophagitis; I10 Essential (primary) hypertension; F32.A Depression, unspecified; Z79.899 Other long term (current) drug therapy; Z88.5 Allergy status to narcotic agent; Z88.8 Allergy status to other drugs, medicaments and biological substances
CPT/HCPCS: 43239; 45380; 88305; J2704; J3010; J7120; 00813; J3490

== ENCOUNTER 2025-10-15 12:09 | Emergency (ER) | payer MEDICARE, OTHER ==
[2025-10-15 12:54] LABS: APPEARANCE,URINE SLT CLOUDY; GLUCOSE,URINE NEGATIVE (NEGATIVE); OCCULT BLOOD,URINE NEGATIVE (NEGATIVE)
[2025-10-15 13:42] LABS: BASOPHILS ABSOLUTE AUTO 0.05 K/uL (0.00-0.20); BASOPHILS PERCENT AUTO 0.8 % (0.0-1.0); EOSINOPHILS ABSOLUTE AUTO 0.06 K/uL (0.00-0.45); EOSINOPHILS PERCENT AUTO 0.9 % (0.0-6.0); IMMATURE GRAN ABSOLUTE AUTO 0.01 K/uL (0.00-0.05); IMMATURE GRAN PERCENT AUTO 0.2 % (0.0-0.4); LYMPHOCYTES ABSOLUTE AUTO 1.65 K/uL (1.00-4.80); LYMPHOCYTES PERCENT AUTO 24.9 % (24.0-44.0); MEAN PLATELET VOLUME 9.8 fL (9.4-12.3); MONOCYTES ABSOLUTE AUTO 0.40 K/uL (0.00-0.80); MONOCYTES PERCENT AUTO 6.0 % (0.0-8.0); NEUTROPHILS ABSOLUTE AUTO 4.46 K/uL (1.80-7.70); NEUTROPHILS PERCENT AUTO 67.2 % (41.0-71.0); NRBC ABSOLUTE 0.00 K/uL (0.00-0.02); NRBC PERCENT 0.0 /100WBC (0.0-0.2); PLATELET COUNT,PLT 250 K/uL (150-400); RED BLOOD CELL COUNT 4.79 M/uL (4.10-5.30); WHITE BLOOD CELL COUNT,WBC 6.63 K/uL (3.9-11.3)
[2025-10-15 14:01] LABS: A/G RATIO 1.1 (0.9-1.6); ALANINE AMINOTRANSFERASE,ALT 32.0 IU/L (14-63); ASPARTATE AMNIOTRANSFERASE,AST 25.0 IU/L (15-37); BILIRUBIN TOTAL 1.1 mg/dL (0.2-1.0); BLOOD UREA NITROGEN,BUN 12.0 mg/dL (7.0-18.0); CARBON DIOXIDE,CO2 25.9 mmol/L (21.0-32.0); CHLORIDE,CL 105.0 mmol/L (98-107); CREATININE 0.7 mg/dL (0.6-1.0); EST CRCL DRUG DOSING (CG) 88.36 mL/min; GLUCOSE RANDOM 112.0 mg/dL (74-106); POTASSIUM,K 3.9 mmol/L (3.5-5.1); PROTEIN TOTAL,TP 8.1 g/dL (6.4-8.2); SODIUM,NA 142.0 mmol/L (136-145)
[2025-10-15 14:02] LABS: ESTIMATED GFR 95.0 mL/min (>60)
[2025-10-15] MEDS: Ondansetron 4 MG/2 ML SDV IVPUSH ONE (14:16)
== END 2025-10-15 15:20 | disposition home or self-care (01) ==
LOC: MW.ED 12:09
DX: R42 Dizziness and giddiness (principal); I10 Essential (primary) hypertension; K21.9 Gastro-esophageal reflux disease without esophagitis; Z88.5 Allergy status to narcotic agent; Z88.8 Allergy status to other drugs, medicaments and biological substances; Z79.899 Other long term (current) drug therapy
CPT/HCPCS: 36415; 70450; 80053; 81003; 85025; 96361; 96374; 99284; A9270; J2405; J7030; 99283